=== PATIENT | male | born 1940 | race Caucasian/White ===

== ENCOUNTER 2017-05-20 16:31 | Emergency (ER) | payer OTHER, BC ==
[~2017-05-20] VITALS: Ht 180.3 cm; Wt 130.9 kg
[~2017-05-20 16:31] MED LIST: NOHOMEMEDS
[2017-05-20 17:35] LABS: EOSINOPHIL (%) 0.7 % (0-5); EOSINOPHIL COUNT 0.1 K/uL (0-0.3); HEMATOCRIT 38.5 % (38.0-50.0); IMMATURE GRANULOCYTE (%) 0.5 % (0.0-0.7); LYMPHOCYTE COUNT 0.5 K/uL (1.0-2.8); MCH 38.1 PG (29.0-34.0); MCHC 34.5 G/DL (30.0-36.0); MCV 110.3 FL (86-99); MEAN PLAT.VOLUME 10.7 uM^3 (9.0-12.4); MONOCYTE (%) 4.5 % (3-12); MONOCYTE COUNT 0.4 K/uL (0-0.8); NEUTROPHIL (%) 87.5 % (45-76); PLATELET COUNT 93 K/uL (156-360); RBC DIS.WIDTH-CV 13.5 % (11.8-14.6); RBC DIS.WIDTH-SD 54.8 % (39-53); RED BLOOD COUNT 3.49 M/uL (4.00-5.50)
[2017-05-20 17:37] LABS: CHLORIDE 105 mEq/L (99-109); POTASSIUM 4.1 mEq/L (3.7-5.4); SODIUM 135 mEq/L (136-147)
[2017-05-20 17:40] LABS: GLUCOSE 150 mg/dL (70-99)
[2017-05-20 17:41] LABS: ANION GAP 10 MEQ/L (2-14); TOTAL BILIRUBIN 1.3 mg/dL (0.0-1.0)
[2017-05-20 17:43] LABS: ALKALINE PHOSPHATASE 61 IU/L (3-129); GFR ESTIMATE (CALCULATED) 48 mL/min/
[2017-05-20 17:44] LABS: UREA NITROGEN (BUN) 31 mg/dL (9-23)
[2017-05-20 17:47] LABS: LIPASE 27 U/L (1.0-51.0)
[2017-05-20 18:04] LABS: MACROCYTES 2+
[2017-05-20 18:09] LABS: ADD MIUA? YES; BILIRUBIN NEGATIVE; BLOOD LARGE; COLOR YELLOW ((YELLOW)); GLUCOSE (STRIP) NEGATIVE; KETONES NEGATIVE; LEUKOCYTES TRACE; NITRITE NEGATIVE; PROTEIN (STRIP) 100; SPECIFIC GRAVITY 1.015 (1.000-1.030)
[2017-05-20 18:46] LABS: EPITHELIAL CELLS 1+ /HPF; MUCUS 2+ /LPF; RED BLOOD CELLS TNTC /HPF (0-5)
[2017-05-20 18:47] LABS: BACTERIA 1+ /HPF; CASTS PRESENT /LPF; CRYSTALS NONE SEEN; HYALINE CASTS RARE /LPF
[2017-05-20] MEDS ORDERED: KEFLEX500 MG PO (20:38)
[2017-05-20] MEDS ORDERED: PERCOCET 5/31 TABLET PO (20:38)
[2017-05-20] MEDS ORDERED: ZOFRAN ODT4 MG PO (20:38)
[2017-05-20] MEDS ORDERED: FLOMAX0.4 MG PO (20:39)
[2017-05-20 21:34] VITALS: BP 153/80
== END 2017-05-20 21:35 | disposition home or self-care (01) ==
LOC: EME 16:31
PROVIDERS: Emergency Medicine
DX: N20.0 Calculus of kidney (principal); Z88.2 Allergy status to sulfonamides; Z88.1 Allergy status to other antibiotic agents; I10 Essential (primary) hypertension; E11.9 Type 2 diabetes mellitus without complications
CPT/HCPCS: 74176; 80053; 81003; 83690; 85025; 99281; 99285; J0696; J1885; J2270; J3010; J7040; J7050

== ENCOUNTER → 2017-05-21 | Outpatient (CLI) | payer MEDICARE, BC ==
[~2017-05-21] MED LIST changes: +FLOMAX0.4 MG PO; +KEFLEX500 MG PO; +PERCOCET 5/31 TABLET PO; +ZOFRAN ODT4 MG PO
== END | disposition home or self-care (01) ==
LOC: CDC 14:56
DX: R94.31 Abnormal electrocardiogram [ECG] [EKG] (principal)
CPT/HCPCS: 93000

== ENCOUNTER 2017-05-24 11:14 | Day surgery (SDC) | payer OTHER, BC ==
[~2017-05-24] VITALS: Ht 177.8 cm; Wt 127.0 kg
[2017-05-24 11:55] VITALS: BP 162/91
[2017-05-24 12:52] LABS: POINT-OF-CARE METER ID UU13113694
[2017-05-24 13:51] LABS: METH RESISTANT S AUREUS PCR NEGATIVE (NEGATIVE)
[2017-05-24 13:54] LABS: PROBE CHECK PASS; SPECIMEN PROCESSING CONTROL PASS
[2017-05-24 16:15] VITALS: BP 162/80
[2017-05-24 17:15] VITALS: BP 160/80
== END 2017-05-24 17:40 | disposition home or self-care (01) ==
LOC: SDC 11:14
PROVIDERS: Urology
DX: N20.2 Calculus of kidney with calculus of ureter (principal); N35.9 Urethral stricture, unspecified; N40.0 Benign prostatic hyperplasia without lower urinary tract symptoms; Z96.652 Presence of left artificial knee joint; E11.9 Type 2 diabetes mellitus without complications; N28.9 Disorder of kidney and ureter, unspecified
CPT/HCPCS: 82948; 87641; C1769; C1876; C1894; J0330; J0690; J1100; J1170; J2405; J3010; J7050

== ENCOUNTER 2018-02-14 07:43 | Emergency (ER) | payer OTHER, BC ==
[~2018-02-14] VITALS: Ht 180.3 cm; Wt 131.1 kg
[2018-02-14 08:17] LABS: HEMATOCRIT 42.7 % (38.0-50.0); HEMOGLOBIN 14.6 G/DL (12.5-16.6); MCHC 34.2 G/DL (30.0-36.0); MCV 99.5 FL (86-99); PLATELET COUNT 103 K/uL (156-360); RBC DIS.WIDTH-CV 14.1 % (11.8-14.6); RBC DIS.WIDTH-SD 51.1 % (39-53); RED BLOOD COUNT 4.29 M/uL (4.00-5.50); WHITE BLOOD COUNT 8.3 K/uL (4.1-10.2)
[2018-02-14 08:57] LABS: CHLORIDE 104 MEQ/L (99-109); CREATININE 1.2 MG/DL (0.6-1.3); GFR ESTIMATE (CALCULATED) > 59 mL/min/ (58.99-99999); GLUCOSE 156 mg/dL (70-99); POTASSIUM 4.2 MEQ/L (3.7-5.4); SODIUM 137 MEQ/L (136-147); UREA NITROGEN (BUN) 15 mg/dL (9-23)
[2018-02-14 09:13] LABS: APPEARANCE CLEAR ((CLEAR)); BILIRUBIN NEGATIVE; BLOOD MODERATE; COLOR YELLOW ((YELLOW)); GLUCOSE (STRIP) NEGATIVE; KETONES NEGATIVE; LEUKOCYTES NEGATIVE; NITRITE NEGATIVE; PROTEIN (STRIP) 100; SPECIFIC GRAVITY 1.019 (1.000-1.030)
[2018-02-14 09:21] LABS: BACTERIA NONE SEEN /HPF; EPITHELIAL CELLS RARE /HPF; MUCUS TRACE /LPF; RED BLOOD CELLS 40-50 /HPF (0-5); UCUL ADDED? NO; WHITE BLOOD CELLS 0-5 /HPF (0-5)
[2018-02-14] MEDS ORDERED: PERCOCET 5/31 TABLET PO (10:46)
[2018-02-14 11:14] VITALS: BP 119/74
== END 2018-02-14 11:19 | disposition home or self-care (01) ==
LOC: EME 07:43
DX: N20.0 Calculus of kidney (principal); E11.9 Type 2 diabetes mellitus without complications; Z87.442 Personal history of urinary calculi; Z98.890 Other specified postprocedural states; Z88.2 Allergy status to sulfonamides
CPT/HCPCS: 74176; 80048; 81003; 85027; 99281; 99284

== ENCOUNTER 2018-05-01 13:55 | Inpatient (IN) | payer OTHER, BC ==
[~2018-05-01] VITALS: Ht 177.8 cm; Wt 126.0 kg
[2018-05-01 14:25] LABS: HEMATOCRIT 32.7 % (38.0-50.0); HEMOGLOBIN 10.7 G/DL (12.5-16.6); MCH 34.5 PG (29.0-34.0); MCHC 32.7 G/DL (30.0-36.0); MCV 105.5 FL (86-99); PLATELET COUNT 61 K/uL (156-360); RBC DIS.WIDTH-CV 14.2 % (11.8-14.6); RBC DIS.WIDTH-SD 55.3 % (39-53); WHITE BLOOD COUNT 6.2 K/uL (4.1-10.2)
[2018-05-01 14:35] LABS: CHLORIDE 107 mEq/L (99-109); POTASSIUM 3.8 mEq/L (3.7-5.4); SODIUM 141 mEq/L (136-147)
[2018-05-01 14:37] LABS: GLUCOSE 130 mg/dL (70-99)
[2018-05-01 14:41] LABS: CREATININE 1.7 mg/dL (0.6-1.3); GFR ESTIMATE (CALCULATED) 42 mL/min/ (58.99-99999)
[2018-05-01 14:42] LABS: UREA NITROGEN (BUN) 26 mg/dL (9-23)
[2018-05-01 14:46] LABS: TROP-I INTERPRETATION NEGATIVE; TROPONIN-I 0.03 ng/mL (0.0-0.30)
[2018-05-01] MEDS ORDERED: CICLODAN90 GM TP (16:43)
[2018-05-01] MEDS ORDERED: METOPROLOL SUCC25 MG PO (16:43)
[2018-05-01] MEDS ORDERED: TRIAMCINOLONE A15 G2 TP (16:44)
[2018-05-01] MEDS ORDERED: ADULT ASPIRIN R81 MG PO (16:44)
[2018-05-01 20:17] VITALS: BP 189/77
[2018-05-01 20:32] VITALS: BP 190/99
[2018-05-01 21:00] VITALS: BP 201/122; BP 205/82
[2018-05-01 21:30] VITALS: BP 169/77
[2018-05-01 22:00] VITALS: BP 160/95
[2018-05-01 23:00] VITALS: BP 165/97
[2018-05-01 23:30] LABS: APPEARANCE CLEAR ((CLEAR)); BILIRUBIN NEGATIVE; BLOOD SMALL; COLOR STRAW ((YELLOW)); GLUCOSE (STRIP) NEGATIVE; KETONES NEGATIVE; LEUKOCYTES NEGATIVE; NITRITE NEGATIVE; PROTEIN (STRIP) 30; SPECIFIC GRAVITY 1.008 (1.000-1.030); UROBILINOGEN 0.2 MG/DL (0.2-1.0)
[2018-05-02] VITALS (22 sets, daily range): BP systolic 80–207; BP diastolic 57–135
[2018-05-02 00:02] LABS: EPITHELIAL CELLS RARE /HPF; WHITE BLOOD CELLS 0-5 /HPF (0-5)
[2018-05-02 00:03] LABS: BACTERIA RARE /HPF; MUCUS NONE SEEN /LPF; UCUL ADDED? NO
[2018-05-02 05:37] LABS: INTER. NORMALIZED RATIO 1.2
[2018-05-02 05:40] LABS: PTT 32.3 SEC (25-37)
[2018-05-02 09:05] LABS: THYROTROPIN (TSH) 1.2 MIU/L (0.4-5.5)
[2018-05-02 10:05] LABS: CHLORIDE 106 MEQ/L (99-109); CREATININE 1.3 MG/DL (0.6-1.3); GFR ESTIMATE (CALCULATED) 57 mL/min/ (58.99-99999); GLUCOSE 136 mg/dL (70-99); POTASSIUM 3.5 MEQ/L (3.7-5.4); SODIUM 142 MEQ/L (136-147); UREA NITROGEN (BUN) 22 mg/dL (9-23)
[2018-05-02 10:24] LABS: LYME DISEASE SEROLOGY SCREEN NEGATIVE (NEGATIVE)
[2018-05-02 11:08] LABS: HEMATOCRIT 43.5 % (38.0-50.0); MCHC 32.2 G/DL (30.0-36.0); MCV 105.6 FL (86-99); PLATELET COUNT 57 K/uL (156-360); RBC DIS.WIDTH-CV 14.1 % (11.8-14.6); RBC DIS.WIDTH-SD 55.6 % (39-53); WHITE BLOOD COUNT 6.5 K/uL (4.1-10.2)
[2018-05-02 11:27] LABS: RED BLOOD COUNT 4.12 M/uL (4.00-5.50)
[2018-05-03] VITALS (16 sets, daily range): BP systolic 136–182; BP diastolic 56–96
[2018-05-03 07:16] LABS: BASOPHIL (%) 0.4 % (0-1); EOSINOPHIL (%) 2.2 % (0-5); EOSINOPHIL COUNT 0.2 K/uL (0-0.3); HEMATOCRIT 40.7 % (38.0-50.0); HEMOGLOBIN 13.5 G/DL (12.5-16.6); IMMATURE GRANULOCYTE (%) 0.3 % (0.0-0.7); LYMPHOCYTE (%) 9.6 % (15-42); LYMPHOCYTE COUNT 0.7 K/uL (1.0-2.8); MCHC 33.2 G/DL (30.0-36.0); MCV 105.4 FL (86-99); MONOCYTE (%) 9.7 % (3-12); MONOCYTE COUNT 0.7 K/uL (0-0.8); NEUTROPHIL (%) 77.8 % (45-76); NEUTROPHIL COUNT 5.6 K/uL (1.8-6.4); PLATELET COUNT 61 K/uL (156-360); RBC DIS.WIDTH-CV 14.4 % (11.8-14.6); RED BLOOD COUNT 3.86 M/uL (4.00-5.50); WHITE BLOOD COUNT 7.2 K/uL (4.1-10.2)
[2018-05-03 07:40] LABS: CHLORIDE 110 MEQ/L (99-109); CREATININE 1.2 MG/DL (0.6-1.3); GFR ESTIMATE (CALCULATED) > 59 mL/min/ (58.99-99999); GLUCOSE 129 mg/dL (70-99); POTASSIUM 4.2 MEQ/L (3.7-5.4); SODIUM 144 MEQ/L (136-147); UREA NITROGEN (BUN) 21 mg/dL (9-23)
[2018-05-04 00:18] VITALS: BP 141/73
[2018-05-04 05:10] VITALS: BP 172/82
[2018-05-04 07:00] VITALS: BP 128/74
[2018-05-04 07:23] LABS: CHLORIDE 100 MEQ/L (99-109); CREATININE 1.2 MG/DL (0.6-1.3); GFR ESTIMATE (CALCULATED) > 59 mL/min/ (58.99-99999); GLUCOSE 139 mg/dL (70-99); UREA NITROGEN (BUN) 20 mg/dL (9-23)
[2018-05-04 07:26] LABS: SODIUM 136 MEQ/L (136-147)
[2018-05-04 07:31] LABS: HEMATOCRIT 41.1 % (38.0-50.0); HEMOGLOBIN 14.2 G/DL (12.5-16.6); MCH 35.8 PG (29.0-34.0); MCHC 34.5 G/DL (30.0-36.0); MCV 103.5 FL (86-99); PLATELET COUNT 65 K/uL (156-360); RBC DIS.WIDTH-CV 14.3 % (11.8-14.6); RBC DIS.WIDTH-SD 54.6 % (39-53); RED BLOOD COUNT 3.97 M/uL (4.00-5.50); WHITE BLOOD COUNT 8.7 K/uL (4.1-10.2)
[2018-05-04 11:16] LABS: HEMATOCRIT 42.5 % (38.0-50.0); MCH 33.7 PG (29.0-34.0); MCHC 32.9 G/DL (30.0-36.0); MCV 102.4 FL (86-99); PLATELET COUNT 62 K/uL (156-360); RBC DIS.WIDTH-CV 14.4 % (11.8-14.6); RBC DIS.WIDTH-SD 54.6 % (39-53); RED BLOOD COUNT 4.15 M/uL (4.00-5.50); WHITE BLOOD COUNT 8.6 K/uL (4.1-10.2)
[2018-05-04 11:26] VITALS: BP 127/86
[2018-05-04 11:41] LABS: IRON 29 MCG/DL (35-150); TRANSFERRIN (TIBC) 199.4 mg/dL (215-380); TRANSFERRIN SATUR. 15 % (20-55)
[2018-05-04 11:59] LABS: FERRITIN 212 NG/ML (22-322)
[2018-05-04 12:04] LABS: FOLIC ACID (FOLATE) 4.9 NG/ML (5.0-22.0)
[2018-05-04 12:08] LABS: ABS NEUTROPHIL COUNT 6.9; ANISOCYTOSIS 1+; ATYPICAL LYMPHOCYTE 0.9 %; BAND NEUTROPHILS 2.6 % (0-8.0); EOSINOPHIL ABS CT 0.3; EOSINOPHILS 3.5 % (0-5.0); HEMATOLOGY COMMENT 1 SN; LYMPHOCYTES 6.1 % (15.0-45.0); MICROCYTOSIS 1+; MONOCYTES 8.7 % (0-9.0); PLAT.SUFFICIENCY DECREASED; POLYCHROMASIA 1+; SEG.NEUTROPHILS 78.2 % (46.0-76.0); TOX.VACUOLIZATION 1+
[2018-05-04 19:55] VITALS: BP 143/66
[2018-05-04 23:53] VITALS: BP 129/61
[2018-05-05 04:11] VITALS: BP 142/68
[2018-05-05 07:00] VITALS: BP 132/60
[2018-05-05 11:26] VITALS: BP 135/80
[2018-05-05 13:06] LABS: ALBUMIN 2.8 G/DL (3.2-4.8); ALKALINE PHOSPHATASE 56 IU/L (3-129); ALT (GPT) 6 IU/L (3-49); AST (GOT) 16 IU/L (2-34); TOTAL BILIRUBIN 2.3 MG/DL (0.0-1.0)
[2018-05-05 16:36] VITALS: BP 137/73
[2018-05-05 19:54] VITALS: BP 127/61
[2018-05-06 00:35] VITALS: BP 163/75
[2018-05-06 04:43] VITALS: BP 142/68
[2018-05-06 07:05] VITALS: BP 139/71
[2018-05-06 09:12] LABS: HEMATOCRIT 40.5 % (38.0-50.0); HEMOGLOBIN 13.2 G/DL (12.5-16.6); MCH 33.5 PG (29.0-34.0); MCHC 32.6 G/DL (30.0-36.0); MCV 102.8 FL (86-99); RBC DIS.WIDTH-CV 14.2 % (11.8-14.6); RBC DIS.WIDTH-SD 54.1 % (39-53); RED BLOOD COUNT 3.94 M/uL (4.00-5.50); WHITE BLOOD COUNT 10.2 K/uL (4.1-10.2)
[2018-05-06 09:13] LABS: PLATELET COUNT 81 K/uL (156-360)
[2018-05-06 09:33] LABS: CHLORIDE 100 MEQ/L (99-109); CREATININE 1.1 MG/DL (0.6-1.3); GFR ESTIMATE (CALCULATED) > 59 mL/min/ (58.99-99999); GLUCOSE 143 mg/dL (70-99); POTASSIUM 3.9 MEQ/L (3.7-5.4); SODIUM 136 MEQ/L (136-147); UREA NITROGEN (BUN) 30 mg/dL (9-23)
[2018-05-06 09:52] LABS: COMMENTS - BLOOD GASES A+C+; FI02 21 %
[2018-05-06 09:54] LABS: PCO2 39 mm Hg (35-45); PO2 64 mm Hg (80-100); pH 7.47 (7.35-7.45)
[2018-05-06 09:55] LABS: BASE EXCESS 4.5 mEq/L (-3 to +3); BICARBONATE 28.4 mEq/L (22-26); CARBOXY HGB 3.5 % (0-5); METHEMOGLOBIN 1.1 % (0-1.5)
[2018-05-06 10:34] LABS: ABS NEUTROPHIL COUNT 8.1; ATYPICAL LYMPHOCYTE 0.9 %; BAND NEUTROPHILS 0.9 % (0-8.0); BASOPHILS 0.9 %; EOSINOPHIL ABS CT 0.2; EOSINOPHILS 1.7 % (0-5.0); LYMPHOCYTES 11.3 % (15.0-45.0); MACROCYTES 1+; MONOCYTES 6.1 % (0-9.0); PLAT.SUFFICIENCY DECREASED; SEG.NEUTROPHILS 78.2 % (46.0-76.0)
[2018-05-06 10:49] LABS: APPEARANCE SL.HAZY ((CLEAR)); BILIRUBIN NEGATIVE; BLOOD LARGE; COLOR AMBER ((YELLOW)); GLUCOSE (STRIP) NEGATIVE; KETONES NEGATIVE; LEUKOCYTES TRACE; NITRITE NEGATIVE; PROTEIN (STRIP) 100; SPECIFIC GRAVITY 1.019 (1.000-1.030)
[2018-05-06 11:20] LABS: RED BLOOD CELLS TNTC /HPF (0-5)
[2018-05-06 11:21] LABS: EPITHELIAL CELLS RARE /HPF
[2018-05-06 11:22] LABS: BACTERIA 1+ /HPF; MUCUS RARE /LPF; UCUL ADDED? YES
[2018-05-06 11:25] VITALS: BP 167/76
[2018-05-06 15:41] VITALS: BP 139/73
[2018-05-06 19:56] VITALS: BP 143/71
[2018-05-07 01:14] VITALS: BP 177/74
[2018-05-07 04:45] VITALS: BP 182/78
[2018-05-07 08:00] VITALS: BP 149/70
[2018-05-07 10:21] LABS: ALBUMIN 2.8 G/DL (3.2-4.8); ALKALINE PHOSPHATASE 66 IU/L (3-129); ALT (GPT) 9 IU/L (3-49); AST (GOT) 20 IU/L (2-34); CHLORIDE 102 MEQ/L (99-109); GFR ESTIMATE (CALCULATED) > 59 mL/min/ (58.99-99999); GLUCOSE 142 mg/dL (70-99); SODIUM 139 MEQ/L (136-147); TOTAL PROTEIN 6.4 G/DL (6.4-8.3); UREA NITROGEN (BUN) 30 mg/dL (9-23)
[2018-05-07 12:00] VITALS: BP 154/72
[2018-05-07 17:04] VITALS: BP 144/66
[2018-05-07 19:59] VITALS: BP 137/66
[2018-05-08 00:01] VITALS: BP 159/74
[2018-05-08 05:43] VITALS: BP 138/70
[2018-05-08 07:49] VITALS: BP 127/53
[2018-05-08] MEDS ORDERED: FERROUS SULFAT325 MG PO (12:43)
[2018-05-08] MEDS ORDERED: LOSARTAN POTASS50 MG PO (12:43)
[2018-05-08] MEDS ORDERED: HYDROCHLOROTHIA25 MG PO (12:43)
[2018-05-08] MEDS ORDERED: COLACE100 MG PO (12:50)
[2018-05-08] MEDS ORDERED: FOLIC ACID1 MG PO (14:30)
[2018-05-08 16:08] VITALS: BP 135/72
[2018-05-12 07:31] LABS: NUMBER OF MARKERS 22; SPECIMEN TYPE BONE MARROW; SPECIMEN VIABILITY 95
== END 2018-05-08 16:52 | DRG 242 ==
LOC: EME 13:55 → 4EAST 17:05 → 4WEST 17:05 → EDOF 17:05 → ENRESERV 17:19 → 4WEST 20:08 → ENRESERV 05-03 12:24 → 4EAST 05-03 14:31 → ENRESERV 05-07 16:29 → 5SOUTH 05-07 19:36
PROVIDERS: Anesthesiology; Emergency Medicine; Hospitalist; Internal Medicine Cardiovascular Disease; Internal Medicine Critical Care Medicine; Specialist
PROC: 5A1213Z Performance of Cardiac Pacing, Intermittent (ICD-10-PCS; principal; 2018-05-01)
PROC: 02HK3JZ Insertion of Pacemaker Lead into Right Ventricle, Percutaneous Approach (ICD-10-PCS; 2018-05-02)
PROC: 02H63JZ Insertion of Pacemaker Lead into Right Atrium, Percutaneous Approach (ICD-10-PCS; 2018-05-02)
PROC: 0JH606Z Insertion of Pacemaker, Dual Chamber into Chest Subcutaneous Tissue and Fascia, Open Approach (ICD-10-PCS; 2018-05-02)
PROC: 07DR3ZX Extraction of Iliac Bone Marrow, Percutaneous Approach, Diagnostic (ICD-10-PCS; 2018-05-06)
DX: I44.2 Atrioventricular block, complete (principal); I49.5 Sick sinus syndrome; G93.41 Metabolic encephalopathy; N17.9 Acute kidney failure, unspecified; D69.59 Other secondary thrombocytopenia; D52.9 Folate deficiency anemia, unspecified; J90 Pleural effusion, not elsewhere classified; D50.9 Iron deficiency anemia, unspecified; E87.70 Fluid overload, unspecified; I89.0 Lymphedema, not elsewhere classified; E11.9 Type 2 diabetes mellitus without complications; I83.12 Varicose veins of left lower extremity with inflammation; I83.11 Varicose veins of right lower extremity with inflammation; I87.8 Other specified disorders of veins; I11.9 Hypertensive heart disease without heart failure; M19.90 Unspecified osteoarthritis, unspecified site; E66.01 Morbid (severe) obesity due to excess calories; Z68.41 Body mass index [BMI] 40.0-44.9, adult; E78.5 Hyperlipidemia, unspecified; I44.7 Left bundle-branch block, unspecified; Z96.652 Presence of left artificial knee joint; Z82.49 Family history of ischemic heart disease and other diseases of the circulatory system
CPT/HCPCS: 36600; 70450; 71045; 77012; 80048; 80053; 80076; 81003; 82140; 82607; 82728; 82746; 82803; 83540; 83880; 84443; 84466; 84484; 85007; 85025; 85027; 85060; 85610; 85730; 86618; 87086; 87641; 93005; 93306; 94799; 95819; 97530 GP; 99281; 99285; A6214; C1753; C1769; C1785; C1892; C1894; C1898; J0360; J0461; J0690; J0696; J1630; J1650; J1940; J2060; J2250; J2405; J3010; J7030; J7050; J7120; S0020